=== PATIENT | female | born 1990 | race Caucasian/White ===

== ENCOUNTER 2023-12-16 14:23 | Emergency (ER) | payer BC, OTHER, SELFPAY ==
[2023-12-16 14:25] VITALS: BP 146/92
[2023-12-16 15:51] LABS: % Basophils 1.1 % (0-2); % Eosinophils 1.4 % (0-6); % Immature Granulocytes 0.3 % (0-0.5); % Lymphocytes 24.2 % (20.5-51.1); Absolute Basophils 0.1 10^3/uL (0-0.2); Absolute Eosinophils 0.1 10^3/uL (0-0.7); Absolute Lymphocytes 2.2 10^3/uL (1.2-3.4); Absolute Monocytes 0.8 10^3/uL (0.1-0.6); Absolute Neutrophils 5.9 10^3/uL (1.4-6.5); Hemoglobin 12.6 g/dL (12.0-16.0); Mean Corpuscular Volume 82.9 fL (81.0-99.0); Mean Platelet Volume 10.5 fL (7.4-10.4); Nucleated Red Blood Cells % 0 %; Platelet Count 210 10^3/uL (130-400); Red Blood Cell Count 4.34 10^6/uL (4.20-5.40); Red Cell Dist. Width 11.9 % (11.5-14.5); White Blood Cell Count 9.2 10^3/uL (4.8-10.8)
[2023-12-16 16:02] LABS: HCG, Serum Qualitative Screen Negative
[2023-12-16] MEDS: TORADOL 15 MG IV (16:02)
[2023-12-16] MEDS: NSS 1000 IV (16:03)
[2023-12-16 16:04] LABS: ALT (SGPT) 17 U/L (0-35); AST (SGOT) 28 U/L (14-36); Albumin 3.8 g/dl (3.5-5.0); Alkaline Phosphatase 33 U/L (38-126); Blood Urea Nitrogen 18 mg/dl (7-17); Carbon Dioxide 24 mmol/L (22-30); Chloride 101 mmol/L (98-107); Glucose 109 mg/dl (70-99); Sodium 135 mmol/L (135-145); Total Bilirubin 0.5 mg/dl (0.2-1.3); Total Protein 6.2 g/dl (6.3-8.2); eGFR > 60.00
--- NOTE | 2023-12-16 19:07 | ED.GENMED ---
History of Present Illness
General
Chief Complaint: Abdominal Pain
Source: patient
Time Seen by Provider: 12/16/23 15:00
Travel History
Have you had any contact with someone who has COVID-19?: No
Do you have any symptoms of coronavirus? Fever > 100 degrees, chills, cough, shortness of breath, sore throat, loss of taste or smell, muscle aches, or headache?: No
History of Present Illness
History of Present Illness:
33-year-old female presents to the emergency room complaining of lower abdominal pain which radiates to the left flank. No associated nausea vomiting diarrhea. Patient started fairly suddenly today. Worse with walking and movement. Patient
denies any vaginal discharge. Patient states there is no chance she is .
Past History
Past History
ED Past Medical History: None
ED Past Surgical History: Tonsilectomy and Other (Helder Myringotomy)
Social History
Tobacco: Non-smoker
Alcohol: None
Personal: Single
Living: with family
Employment: Employed
Phy Exam
Physical Exam
Physical Exam:
General: Awake, Alert, Oriented X3. No acute distress.
Vitals: unremarkable
Head: Atraumatic
Eyes: Pupils equal, EOMI
Throat: Airway intact, no exudates
Neck: Trachea midline
Lungs: Clear and equal b/l
Heart: Regular rate, no murmurs
Abd: Soft, moderate tenderness palpation lower abdomen more so on the left, No pulsatile mass
Neuro: Nonfocal
Skin: Warm, dry, no rash
Extremities: pulses equal b/l, no edema
Course
Orders/Labs/Results
Orders:
Orders
12/16/23 15:26
0.9% Sodium Chloride 1000 ml [Nss] 1,000 ml IV BOLUS
Ketorolac [Toradol] 15 mg IV NOW STA
12/16/23 15:27
Test Result ONCE
12/16/23 15:38
Complete Blood Count/With Diff Urgent
Comprehensive Metabolic Panel Urgent
HCG, Serum Qualitative Screen Urgent
12/16/23 16:43
CT Abd/pelvis W Iv Cont Urgent
Comment:
Reason For Exam: lower abd pain
12/16/23 19:18
Urinalysis Reflex To Culture Urgent
Date Specimen was Collected: 12/16/23
Time Specimen was Collected: 19:17
Abnormal Lab Results
12/16/23
15:38
Hct 36.0 L %
(37.0-47.0)
MPV 10.5 H fL
(7.4-10.4)
Absolute Monos (auto) 0.8 H 10^3/uL
(0.1-0.6)
BUN 18 H mg/dl
(7-17)
Creatinine 0.5 L mg/dL
(0.6-1.0)
Glucose 109 H mg/dl
(70-99)
Alkaline Phosphatase 33 L U/L
(38-126)
Total Protein 6.2 L g/dl
(6.3-8.2)
12/16/23 15:38
12/16/23 15:38
Vital Signs
Initial and Last Documented VS:
Initial Vital Signs
Temp Pulse Resp BP Pulse Ox
97.8 F 96 22 146/92 100
12/16/23 14:25 12/16/23 14:25 12/16/23 14:25 12/16/23 14:25 12/16/23 14:25
Last Documented Vital Signs
Temp Pulse Resp BP Pulse Ox
97.8 F 96 22 146/92 100
12/16/23 14:25 12/16/23 14:25 12/16/23 14:25 12/16/23 14:25 12/16/23 14:25
MDM/Problems Addressed
Differential Diagnosis Includes:
Ruptured ovarian cyst, hemorrhagic cyst, appendicitis, kidney stone
MDM/Problems Addressed:
Imaging shows some complex free fluid which would be consistent with a ruptured ovarian cyst. Appendix is normal.
*Radiology
Radiology exam reviewed: radiology read reviewed
*Pulse Oximetry
Patient hypoxic: no
*Critical Care Note
Total Time (30-74mins, 75-104mins- exclusive of procedures): Not Applicable
ED Attending Note
-
Portions of this chart may have been created with voice recognition software.� Occasional wrong word or��sound alike� substitutions may have occurred due to the inherent limitations of voice recognition software.
Discharge Plan
Departure
Patient Disposition: Home (Routine Discharge)
Date of Disposition: 12/16/23
Time of Disposition: 19:07
Patient with high blood pressure during this ER visit?: No
Discharge Problem:
Ovarian cyst rupture, Abdominal pain
Instructions: Ovarian Cyst ED, Abdominal Pain
Prescriptions:
No Action
ferrous sulfate [Iron (ferrous sulfate)] 325 MG tablet
325 mg PO DAILY
vit-iron fum-folic ac 1 EACH tablet
1 ea PO DAILY
ibuprofen 600 MG tablet
600 mg PO Q4HPRN PRN (Reason: cramps) 0RF
Referrals:
Nikita Mirza MD [Family Provider] -
Activity Restrictions/Additional Instructions:
Please follow up with you rehabilitation manager. You can take 600mg of ibuprofen every 6 hours for pain.
Interventions
Interventions:
*Risk Screen - Suicide Last Done: 12/16/23 15:41
*General Assessment Last Done: 12/16/23 15:41
*Neglect/Abuse Screening Last Done: 12/16/23 15:41
*Nursing Disposition Last Done: 12/16/23 19:26
EZ-Eeiwvj-Yaerdomlqy Assessment Last Done: 12/16/23 15:42
Discharge Date and Time
Discharge Date/Time: 12/16/23 19:28
[2023-12-16 19:26] LABS: Urine Albumin Negative (Neg - Trace); Urine Bilirubin Negative (Negative); Urine Character Clear (Clear); Urine Color Yellow; Urine Glucose Negative (Negative); Urine Ketone Negative (Negative); Urine Leukocyte Negative (Negative); Urine Nitrite Negative (Negative); Urine Occult Blood Negative (Negative); Urine Urobilinogen Negative (Neg - 1+)
== END 2023-12-16 19:28 | disposition home or self-care (01) ==
LOC: EMR 14:23
PROVIDERS: EMERGENCY PHYSICIAN Emergency Medicine; FAMILY PHYSICIAN Internal Medicine
DX: R10.30 Lower abdominal pain, unspecified (principal); N83.291 Other ovarian cyst, right side
CPT/HCPCS: 99285; 96374; 74177; 80053; 81003; 84703; 85025; Q9967

== ENCOUNTER → 2024-01-04 10:58 | Outpatient (REF) | payer BC, OTHER, SELFPAY ==
[2024-01-04 13:54] LABS: Erythrocyte Sed Rate 8 mm/hour (0-20)
[2024-01-06 13:32] LABS: Rheumatoid Agglutinin Less Than 10 IU (<10 IU)
[2024-01-07 15:05] LABS: ANA, IgG Reflex to HEp-2 None Detected (None Detected)
[2024-01-07 17:12] LABS: CCP Antibody IgG/IgA 8 Units (0-19)
== END ==
LOC: REG 10:58
PROVIDERS: ATTENDING PHYSICIAN Physician Assistant Medical
DX: M79.89 Other specified soft tissue disorders (principal); I73.00 Raynaud's syndrome without gangrene
CPT/HCPCS: 36415; 85652; 86038; 86140; 86200; 86430

== ENCOUNTER → 2024-04-10 10:14 | Outpatient (REF) | payer BC, OTHER, SELFPAY | LOC: RAD 10:14 | PROVIDERS: ATTENDING PHYSICIAN Physician Assistant; FAMILY PHYSICIAN Physician Assistant Medical | DX: E05.90 Thyrotoxicosis, unspecified without thyrotoxic crisis or storm (principal) | CPT/HCPCS: 76536 ==

== ENCOUNTER → 2025-02-13 07:51 | Outpatient (REF) | payer BC, SELFPAY ==
[2025-02-13 08:38] LABS: % Eosinophils 1.2 % (0-6); % Immature Granulocytes 0.3 % (0-0.5); % Lymphocytes 27.7 % (20.5-51.1); % Monocytes 6.9 % (1.7-9.3); % Neutrophils 62.9 % (42.2-75.2); Absolute Basophils 0.1 10^3/uL (0-0.2); Absolute Eosinophils 0.1 10^3/uL (0-0.7); Absolute Monocytes 0.5 10^3/uL (0.1-0.6); Absolute Neutrophils 4.5 10^3/uL (1.4-6.5); Hematocrit 38.8 % (37.0-47.0); Hemoglobin 13.2 g/dL (12.0-16.0); Mean Corpuscular Hgb 28.1 pg (27.0-31.0); Mean Corpuscular Volume 82.6 fL (81.0-99.0); Mean Platelet Volume 9.1 fL (7.4-10.4); Nucleated Red Blood Cells % 0 %; Platelet Count 255 10^3/uL (130-400); Red Cell Dist. Width 11.9 % (11.5-14.5); White Blood Cell Count 7.2 10^3/uL (4.8-10.8)
[2025-02-13 09:05] LABS: ALT (SGPT) 18 U/L (0-35); AST (SGOT) 28 U/L (14-36); Albumin 4.8 g/dl (3.5-5.0); Alkaline Phosphatase 54 U/L (38-126); Blood Urea Nitrogen 17 mg/dl (7-17); Calcium 9.4 mg/dl (8.4-10.2); Carbon Dioxide 23 mmol/L (22-30); Chloride 104 mmol/L (98-107); Glucose 87 mg/dl (70-99); HDL Cholesterol 69 mg/dl; LDL Cholesterol, Calculated 108 mg/dl; Potassium 4.1 mmol/L (3.5-5.1); Sodium 140 mmol/L (135-145); Total Bilirubin 0.7 mg/dl (0.2-1.3); Total Cholesterol 190 mg/dl (50-199); Total Protein 7.2 g/dl (6.3-8.2); Triglyceride 69 mg/dl (10-149); Very Low Density Lipoprotein 13 mg/dl (0-30); eGFR > 60.00
[2025-02-13 09:18] LABS: Free T4 1.26 ng/dl (0.78-2.19); Vitamin D, 25-OH*** 26.9 ng/mL (30-80)
[2025-02-13 09:31] LABS: Cortisol, Random 4.6 ug/dl; TSH 1.48 uIU/ml (0.47-4.68)
== END ==
LOC: REG 07:51
PROVIDERS: ATTENDING PHYSICIAN Physician Assistant Medical
DX: E55.9 Vitamin D deficiency, unspecified (principal); L65.9 Nonscarring hair loss, unspecified; E28.2 Polycystic ovarian syndrome; E03.9 Hypothyroidism, unspecified; E78.00 Pure hypercholesterolemia, unspecified; G90.A Postural orthostatic tachycardia syndrome [POTS]
CPT/HCPCS: 36415; 80053; 80061; 82306; 82533; 83036; 84439; 84443; 85025

== ENCOUNTER → 2025-04-03 07:56 | Outpatient (REF) | payer BC, SELFPAY ==
[2025-04-03 10:22] LABS: ALT (SGPT) 19 U/L (0-35); AST (SGOT) 28 U/L (14-36); Albumin 4.9 g/dl (3.5-5.0); Alkaline Phosphatase 33 U/L (38-126); Blood Urea Nitrogen 17 mg/dl (7-17); Calcium 9.2 mg/dl (8.4-10.2); Carbon Dioxide 19 mmol/L (22-30); Chloride 109 mmol/L (98-107); Glucose 78 mg/dl (70-99); Potassium 4.3 mmol/L (3.5-5.1); Sodium 138 mmol/L (135-145); Total Bilirubin 0.8 mg/dl (0.2-1.3); Total Protein 7.4 g/dl (6.3-8.2); eGFR > 60.00
[2025-04-03 10:24] LABS: Cortisol, Random 9.5 ug/dl
[2025-04-04 20:49] LABS: Adrenocorticotropic Hormone 16.6 pg/mL (7.2-63.3)
== END ==
LOC: RCS 07:56
PROVIDERS: ATTENDING PHYSICIAN Internal Medicine Cardiovascular Disease; FAMILY PHYSICIAN Physician Assistant Medical; REFERRING PHYSICIAN Physician Assistant
DX: R06.09 Other forms of dyspnea (principal); R94.31 Abnormal electrocardiogram [ECG] [EKG]; E27.40 Unspecified adrenocortical insufficiency; R79.89 Other specified abnormal findings of blood chemistry
CPT/HCPCS: 36415; 80053; 82024; 82533; 93306

== ENCOUNTER → 2025-04-11 14:10 | Outpatient (REF) | payer BC, SELFPAY | LOC: RCS 14:10 | PROVIDERS: ATTENDING PHYSICIAN Internal Medicine Cardiovascular Disease; FAMILY PHYSICIAN Physician Assistant Medical | DX: R06.09 Other forms of dyspnea (principal); R94.31 Abnormal electrocardiogram [ECG] [EKG] | CPT/HCPCS: 93017; 93350 ==

== ENCOUNTER → 2025-04-27 07:55 | Outpatient (REF) | payer BC, SELFPAY ==
[2025-04-27 08:26] LABS: % Eosinophils 1.6 % (0-6); % Immature Granulocytes 0.2 % (0-0.5); % Lymphocytes 24.9 % (20.5-51.1); % Monocytes 7.3 % (1.7-9.3); Absolute Basophils 0.1 10^3/uL (0-0.2); Absolute Eosinophils 0.1 10^3/uL (0-0.7); Absolute Lymphocytes 1.5 10^3/uL (1.2-3.4); Absolute Monocytes 0.5 10^3/uL (0.1-0.6); Hematocrit 38.7 % (37.0-47.0); Mean Corp Hgb Conc. 33.6 g/dL (33.0-37.0); Mean Corpuscular Volume 83.2 fL (81.0-99.0); Mean Platelet Volume 9.1 fL (7.4-10.4); Nucleated Red Blood Cells % 0 %; Platelet Count 247 10^3/uL (130-400); Red Blood Cell Count 4.65 10^6/uL (4.20-5.40); Red Cell Dist. Width 12.2 % (11.5-14.5); White Blood Cell Count 6.2 10^3/uL (4.8-10.8)
[2025-04-27 09:11] LABS: ALT (SGPT) 19 U/L (0-35); AST (SGOT) 24 U/L (14-36); Albumin 4.7 g/dl (3.5-5.0); Alkaline Phosphatase 32 U/L (38-126); Blood Urea Nitrogen 13 mg/dl (7-17); Calcium 9.5 mg/dl (8.4-10.2); Carbon Dioxide 26 mmol/L (22-30); Chloride 106 mmol/L (98-107); Glucose 84 mg/dl (70-99); Iron 150 ug/dl (37-170); Potassium 4.4 mmol/L (3.5-5.1); Sodium 138 mmol/L (135-145); Total Bilirubin 0.8 mg/dl (0.2-1.3); Total Protein 7.1 g/dl (6.3-8.2); eGFR > 60.00
[2025-04-27 09:20] LABS: Percent Saturation 41 % (20-50); Total Iron Binding Capacity 359 ug/dl (265-497)
[2025-04-27 09:25] LABS: Free T4 1.21 ng/dl (0.78-2.19)
[2025-04-27 09:38] LABS: TSH 3.37 uIU/ml (0.47-4.68)
[2025-04-27 09:42] LABS: Ferritin 18.5 ng/ml (6.24-137)
[2025-04-29 03:11] LABS: Adrenocorticotropic Hormone 16.2 pg/mL (7.2-63.3)
== END ==
LOC: REG 07:55
PROVIDERS: ATTENDING PHYSICIAN Physician Assistant; FAMILY PHYSICIAN Physician Assistant Medical
DX: E27.40 Unspecified adrenocortical insufficiency (principal); R79.89 Other specified abnormal findings of blood chemistry; E03.9 Hypothyroidism, unspecified
CPT/HCPCS: 36415; 80053; 82024; 82533; 82728; 83540; 83550; 84439; 84443; 85025

== ENCOUNTER → 2025-05-21 07:50 | Outpatient (REF) | payer BC, SELFPAY ==
[2025-05-21 08:53] LABS: ALT (SGPT) 19 U/L (0-35); AST (SGOT) 26 U/L (14-36); Albumin 4.6 g/dl (3.5-5.0); Alkaline Phosphatase 37 U/L (38-126); Blood Urea Nitrogen 13 mg/dl (7-17); Calcium 9.3 mg/dl (8.4-10.2); Carbon Dioxide 25 mmol/L (22-30); Chloride 104 mmol/L (98-107); Glucose 88 mg/dl (70-99); Potassium 4.1 mmol/L (3.5-5.1); Sodium 135 mmol/L (135-145); Total Protein 7.0 g/dl (6.3-8.2); eGFR > 60.00
[2025-05-21 09:15] LABS: Cortisol, Random 6.6 ug/dl; TSH 0.72 uIU/ml (0.47-4.68)
== END ==
LOC: REG 07:50
PROVIDERS: ATTENDING PHYSICIAN Physician Assistant; FAMILY PHYSICIAN Physician Assistant Medical
DX: E03.9 Hypothyroidism, unspecified (principal); E27.40 Unspecified adrenocortical insufficiency; R79.89 Other specified abnormal findings of blood chemistry
CPT/HCPCS: 36415; 80053; 82024; 82533; 84439; 84443